=== PATIENT | male | born 1955 | race Caucasian/White ===

== ENCOUNTER 2023-10-21 08:00 | Emergency (ER) | payer OTHER ==
[~2023-10-21] VITALS: Ht 180.3 cm; Wt 70.3 kg
[2023-10-21 08:22] VITALS: PULSE 73; RESP 18; O2SAT 96
[2023-10-21 08:51] LABS: Basophils % (auto) 0.6 % (0.0-2.0); Eosinophils # (auto) 0.1 10 ^3/uL (0-0.8); Eosinophils % (auto) 0.7 % (0.0-7.0); Lymphocytes # (auto) 1.5 10 ^3/uL (0.4-5.4); Mean Corpuscular Hgb Conc. 34.8 g/dL (32.0-36.0); Red Cell Distribution Width 12.8 % (11.8-14.3); White Blood Cell 8.3 10^3/uL (4.4-10.8)
[2023-10-21 08:54] LABS: Basophils # (auto) 0.1 10 ^3/uL (0-0.2); Hematocrit 40.4 % (41.0-53.0); Hemoglobin 14.1 g/dL (13.5-17.5); Lymphocytes % (auto) 18.7 % (10.0-50.0); Mean Corpuscular Hemoglobin 37.2 pg (28.0-32.0); Mean Corpuscular Volume 106.8 fL (80.0-100.0); Monocytes # (auto) 0.6 10 ^3/uL (0-1.3); Monocytes % (auto) 7.9 % (0.0-12.0); Neutrophils # (auto) 5.9 10 ^3/uL (1.6-8.6); Neutrophils % (auto) 72.1 % (37.0-80.0); Red Blood Cells 3.78 10^6/uL (4.5-5.90)
[2023-10-21 09:22] LABS: Alanine Aminotransferase 19 U/L (7-40); Albumin 4.6 g/dL (3.2-4.8); Alkaline Phosphatase 44 U/L (46-116); Anion Gap 8 (5-15); Aspartate Aminotransferase 21 U/L (13-40); BUN/Creatinine Ratio 13.7 (10.0-20.0); Bilirubin, Total 0.8 mg/dL (0.2-1.0); Blood Urea Nitrogen 10 mg/dL (9-23); Calcium 9.4 mg/dL (8.5-10.1); Carbon Dioxide 25 mmol/L (20-30); Chloride 96 mmol/L (98-107); Glucose 90 mg/dL (74-106); Potassium 4.2 mmol/L (3.5-5.1); Sodium 129 mmol/L (136-145); Total Protein 6.9 g/dL (5.7-8.2)
[2023-10-21 09:24] LABS: Urine Bacteria NONE SEEN /hpf (None Seen); Urine Blood Negative /uL (Negative); Urine Clarity Clear (Clear); Urine Protein, UAD Negative (Negative); Urine Specific Gravity 1.007 (1.001-1.035); Urine Urobilinogen Normal (Negative); Urine WBC <1 /hpf (0 - 3)
[2023-10-21 09:25] LABS: Urine Color Straw (Yellow)
[2023-10-21] MEDS ORDERED: KETOROLAC TROMETH 60MG/2ML VIAL IM ONE (13:30)
[2023-10-21 13:31] VITALS: BP 126/87; PULSE 62; RESP 18; O2SAT 98
[2023-10-21] MEDS ORDERED: NITR1CAP36 PO (13:39)
[2023-10-21] MEDS ORDERED: HYDR-4902 PO (13:40)
[2023-10-21] MEDS ORDERED: CYCL-839 PO (13:40)
[2023-10-21] MEDS ORDERED: DICL50TA2 PO (13:40)
== END 2023-10-21 14:02 | disposition home or self-care (01) ==
LOC: ER 08:00
DX: M62.830 Muscle spasm of back (principal); N30.20 Other chronic cystitis without hematuria; G89.29 Other chronic pain; Z90.89 Acquired absence of other organs; Z91.030 Bee allergy status
CPT/HCPCS: 36415; 74176; 80053; 81001; 85025; 96372; 99285; J1885